=== PATIENT | female | born 2000 | race Hispanic/Latino ===

== ENCOUNTER 2024-04-27 20:14 | Emergency (ER) | payer OTHER ==
[~2024-04-27] VITALS: Ht 160 cm; Wt 63.5 kg
[2024-04-27 20:22] VITALS: TEMP 99.5
[2024-04-27 22:01] VITALS: PULSE 89; RESP 16
[2024-04-27 23:21] VITALS: BP 110/59; PULSE 79; RESP 16; TEMP 98.4; O2SAT 99
== END 2024-04-27 23:28 | disposition home or self-care (01) ==
LOC: ER 20:20
DX: R50.9 Fever, unspecified (principal); S00.81XA Abrasion of other part of head, initial encounter; W01.0XXA Fall on same level from slipping, tripping and stumbling without subsequent striking against object, initial encounter; Y93.01 Activity, walking, marching and hiking; Y92.89 Other specified places as the place of occurrence of the external cause; F84.0 Autistic disorder; F79 Unspecified intellectual disabilities
CPT/HCPCS: 70450; 70486; 99284